=== PATIENT | male | born 1935 | race Caucasian/White ===

== ENCOUNTER 2019-11-15 06:20 | Inpatient (IN) ==
[~2019-11-15 06:20] MED LIST: Vancomycin 1,000 MG, Sodium Chloride IRRigation 1,000 ML IR ONE
[2019-11-15] MEDS ORDERED: CeFAZolin Syr 2,000MG/20 ML 2,000 MG/20 ML SYRINGE IVPB ONE (06:53)
[2019-11-15] MEDS ORDERED: 0.9 % Sodium Chloride 1,000 ML IVC SCH ×2 (07:00→11:44)
[2019-11-15] MEDS ORDERED: Lidocaine -MPF 2% 2 ML VIAL ONE (07:09)
[2019-11-15] MEDS ORDERED: *HR* FentaNYL (PF) 100 MCG/2 ML VIAL ONE (07:09)
[2019-11-15] MEDS ORDERED: *HR* Propofol 200 MG/20 ML VIAL IVP ONE (07:09)
[2019-11-15] MEDS ORDERED: *HR* OxyCODONE Immed Rel 5 MG TABLET PO PRN ×3 (07:09→11:44)
[2019-11-15] MEDS ORDERED: *HR* Succinylcholine 200 MG/10 ML VIAL IVP ONE (07:09)
[2019-11-15] MEDS ORDERED: Ondansetron 4 MG/2 ML VIAL IVP ONE (07:09)
[2019-11-15] MEDS ORDERED: 0.9 % Sodium Chloride 500 ML IVC SCH (07:15)
[2019-11-15] MEDS ORDERED: EPHEDrine 50 MG/ML VIAL ONE (08:03)
[2019-11-15] MEDS ORDERED: *HR* PHENYLEPHRINE 1,000 MCG/10 ML SYRINGE IVP ONE (08:39)
[2019-11-15] MEDS: *HR* HYDROmorphone PF 0.5 MG/0.5 ML SYRINGE IVP PRN ×4 (09:44→10:06)
[2019-11-15] MEDS ORDERED: Artificial Tears SOLN 15 ML BOTTLE BOTH EYES PRN (11:44)
[2019-11-15] MEDS ORDERED: Dextrose Gel 15 GM/37.5 ML TUBE PO PRN ×2 (11:44)
[2019-11-15] MEDS ORDERED: D5% in Water 1,000 ML IVC PRN (11:44)
[2019-11-15] MEDS ORDERED: Acetaminophen 325 MG TABLET PO PRN ×2 (11:44)
[2019-11-15] MEDS ORDERED: *HR* Dextrose 50 % in Water (Vial) 50 ML VIAL IVP PRN (11:44)
[2019-11-15] MEDS ORDERED: Ondansetron 4 MG/2 ML VIAL IVP PRN (11:44)
[2019-11-15] MEDS ORDERED: *HR* HYDROcodone/Acet 5/325 mg TABLET PO PRN ×2 (11:44)
[2019-11-15] MEDS ORDERED: *HR* Labetalol 20 MG/4 ML SYRINGE IVP PRN (11:44)
[2019-11-15] MEDS ORDERED: Naloxone 0.4 MG/ML INJ IVP PRN (11:44)
[2019-11-15] MEDS: *HR* Metoprolol 5 MG/5 ML VIAL IVP SCH ×3 (15:00→23:51)
[2019-11-15] MEDS: Insulin LISPRO 300 UNITS/3 ML VIAL SQ SCH ×3 (15:00→21:57)
[2019-11-15] MEDS: Lactobacillus 1 EACH CAP.SPRINK PO SCH (21:55)
[2019-11-15] MEDS: Saline Nasal Spray 44 ML BOTTLE NS SCH (21:56)
[2019-11-15] MEDS: Latanoprost 2.5 ML BOTTLE BOTH EYES SCH (21:56)
[2019-11-15] MEDS: [UNRECOGNIZED DRUG - OTHER] TP SCH (21:57)
[2019-11-15] MEDS: (Methenamine Hippurate [Hiprex] 1 GM) PO SCH (21:57)
[2019-11-15] MEDS ORDERED: Insulin LISPRO 300 UNITS/3 ML VIAL SQ ONE (23:18)
[2019-11-15 23:28] LABS: Hematocrit 27.8 % (37.5-50.1); Hemoglobin 8.3 g/dL (12.9-16.9)
[2019-11-15 23:47] LABS: Calcium 8.5 mg/dL (8.6-10.3); Potassium 4.6 mEq/L (3.5-5.1)
[2019-11-16] MEDS ORDERED: Insulin DETEMIR 100 UNIT/ML X5UNITS SQ ONE (02:08)
[2019-11-16 03:59] LABS: Basophils % 0.1 %; Hematocrit 25.8 % (37.5-50.1); Hemoglobin 7.6 g/dL (12.9-16.9); Immature Granulocytes % 0.6 % (0-4); Lymphocytes # 0.5 K/mcL (0.6-4.6); Lymphocytes % 3.4 %; Mean Corpuscular HGB Conc 29.5 g/dL (31.6-35.5); Mean Corpuscular Hemoglobin 25.6 pg (28.0-33.3); Mean Corpuscular Volume 86.9 fL (83.0-100.0); Mean Platelet Volume 10.4 fL (9.4-12.4); Monocytes # 1.1 K/mcL (0.0-1.3); Monocytes % 7.6 %; Platelet Count 372 K/mcL (140-400); Red Blood Count 2.97 M/mcL (4.19-5.50); Red Cell Distribution Width 14.8 % (11.5-14.5); Segmented Neutrophils % 88.3 %
[2019-11-16 04:00] LABS: Neutrophils # 12.3 K/mcL (1.6-8.9); White Blood Count 13.9 K/mcL (4.3-11.1)
[2019-11-16 04:19] LABS: Calcium 8.3 mg/dL (8.6-10.3); Potassium 4.7 mEq/L (3.5-5.1)
[2019-11-16] MEDS ORDERED: *HR* Heparin 5,000 UNIT/ML VIAL SQ SCH (06:00)
[2019-11-16] MEDS ORDERED: Insulin LISPRO 300 UNITS/3 ML VIAL SQ ONE (06:10)
[2019-11-16] MEDS: *HR* Metoprolol 5 MG/5 ML VIAL IVP SCH (06:31)
[2019-11-16] MEDS: *HR* Heparin 5,000 UNIT/ML VIAL SQ SCH ×2 (06:32→18:18)
[2019-11-16] MEDS: Ascorbic Acid 500 MG TABLET PO SCH (08:39)
[2019-11-16] MEDS: Lactobacillus 1 EACH CAP.SPRINK PO SCH ×2 (08:39→21:32)
[2019-11-16] MEDS: Cholecalciferol (D-3) 1,000 UNIT (25MCG) TABLET PO SCH (08:39)
[2019-11-16] MEDS: Furosemide 20 MG TABLET PO SCH (08:39)
[2019-11-16] MEDS: Multivit/Ca/Min/Fe/FA 1 TAB TABLET PO SCH (08:39)
[2019-11-16] MEDS: Aspirin Enteric Coated 81 MG Tablet PO SCH (08:39)
[2019-11-16] MEDS: Insulin LISPRO 300 UNITS/3 ML VIAL SQ SCH ×4 (08:40→21:34)
[2019-11-16] MEDS: Insulin DETEMIR 100 UNIT/ML X5UNITS SQ SCH ×2 (08:41→21:33)
[2019-11-16] MEDS: Saline Nasal Spray 44 ML BOTTLE NS SCH ×2 (08:41→21:34)
[2019-11-16] MEDS: [UNRECOGNIZED DRUG - OTHER] TP SCH (08:45)
[2019-11-16] MEDS: (Methenamine Hippurate [Hiprex] 1 GM) PO SCH (08:45)
[2019-11-16] MEDS ORDERED: *HR* Glimepiride 2 MG TABLET PO SCH (09:00)
[2019-11-16] MEDS ORDERED: *HR* OxyCODONE Immed Rel 5 MG TABLET PO PRN (14:32)
[2019-11-16] MEDS ORDERED: Gentamicin Oint 15 GM TUBE TP SCH (16:15)
[2019-11-16] MEDS: Latanoprost 2.5 ML BOTTLE BOTH EYES SCH (21:34)
[2019-11-17] MEDS: Gentamicin Oint 15 GM TUBE TP SCH ×2 (01:03→20:38)
[2019-11-17 04:18] LABS: Basophils % 0.1 %; Eosinophils % 0.2 %; Hematocrit 22.4 % (37.5-50.1); Hemoglobin 6.8 g/dL (12.9-16.9); Immature Granulocytes % 0.7 % (0-4); Lymphocytes # 0.9 K/mcL (0.6-4.6); Lymphocytes % 6.9 %; Mean Corpuscular HGB Conc 30.4 g/dL (31.6-35.5); Mean Corpuscular Hemoglobin 25.7 pg (28.0-33.3); Mean Corpuscular Volume 84.5 fL (83.0-100.0); Mean Platelet Volume 10.8 fL (9.4-12.4); Monocytes # 1.2 K/mcL (0.0-1.3); Monocytes % 9.1 %; Neutrophils # 10.7 K/mcL (1.6-8.9); Nucleated Red Blood Cells 0.2 /100 WBC (0); Platelet Count 353 K/mcL (140-400); Red Blood Count 2.65 M/mcL (4.19-5.50); White Blood Count 12.9 K/mcL (4.3-11.1)
[2019-11-17 04:36] LABS: Calcium 8.7 mg/dL (8.6-10.3); Potassium 4.3 mEq/L (3.5-5.1)
[2019-11-17] MEDS: *HR* Heparin 5,000 UNIT/ML VIAL SQ SCH ×2 (05:18→17:25)
[2019-11-17] MEDS: Cholecalciferol (D-3) 1,000 UNIT (25MCG) TABLET PO SCH (07:55)
[2019-11-17] MEDS: Aspirin Enteric Coated 81 MG Tablet PO SCH (07:55)
[2019-11-17] MEDS: Ascorbic Acid 500 MG TABLET PO SCH (07:56)
[2019-11-17] MEDS: Lactobacillus 1 EACH CAP.SPRINK PO SCH ×2 (07:56→20:37)
[2019-11-17] MEDS: Multivit/Ca/Min/Fe/FA 1 TAB TABLET PO SCH (07:56)
[2019-11-17] MEDS: Furosemide 20 MG TABLET PO SCH (07:57)
[2019-11-17] MEDS: Insulin DETEMIR 100 UNIT/ML X5UNITS SQ SCH ×2 (07:57→20:38)
[2019-11-17] MEDS: Saline Nasal Spray 44 ML BOTTLE NS SCH ×2 (07:58→20:39)
[2019-11-17] MEDS: Insulin LISPRO 300 UNITS/3 ML VIAL SQ SCH ×4 (08:02→20:36)
[2019-11-17 08:12] LABS: Hematocrit 23.1 % (37.5-50.1); Hemoglobin 7.1 g/dL (12.9-16.9)
[2019-11-17] MEDS ORDERED: 0.9 % Sodium Chloride 250 ML ONE ×2 (09:09→12:47)
[2019-11-17 17:56] LABS: Hemoglobin 9.4 g/dL (12.9-16.9)
[2019-11-17] MEDS: Latanoprost 2.5 ML BOTTLE BOTH EYES SCH (20:38)
[2019-11-18 01:16] LABS: Hematocrit 29.7 % (37.5-50.1); Hemoglobin 9.5 g/dL (12.9-16.9)
[2019-11-18] MEDS: *HR* Heparin 5,000 UNIT/ML VIAL SQ SCH (05:08)
[2019-11-18 05:40] LABS: Hematocrit 29.5 % (37.5-50.1); Hemoglobin 9.1 g/dL (12.9-16.9)
[2019-11-18 08:45] LABS: Calcium 8.2 mg/dL (8.6-10.3); Magnesium 1.9 mg/dL (1.6-2.6); Phosphorous 2.7 mg/dL (2.7-4.5); Potassium 3.8 mEq/L (3.5-5.1)
[2019-11-18 09:05] LABS: Basophils % 0.4 %; Eosinophils # 0.3 K/mcL (0.0-0.6); Eosinophils % 3.2 %; Hematocrit 31.1 % (37.5-50.1); Hemoglobin 9.9 g/dL (12.9-16.9); Immature Granulocytes % 0.8 % (0-4); Lymphocytes # 1.1 K/mcL (0.6-4.6); Lymphocytes % 10.9 %; Mean Corpuscular HGB Conc 31.8 g/dL (31.6-35.5); Mean Corpuscular Hemoglobin 27.4 pg (28.0-33.3); Mean Corpuscular Volume 86.1 fL (83.0-100.0); Mean Platelet Volume 10.7 fL (9.4-12.4); Neutrophils # 7.3 K/mcL (1.6-8.9); Platelet Count 338 K/mcL (140-400); Red Blood Count 3.61 M/mcL (4.19-5.50); Red Cell Distribution Width 14.6 % (11.5-14.5); Segmented Neutrophils % 74.7 %; White Blood Count 9.7 K/mcL (4.3-11.1)
[2019-11-18] MEDS: Insulin LISPRO 300 UNITS/3 ML VIAL SQ SCH ×4 (10:01→20:06)
[2019-11-18] MEDS: Cholecalciferol (D-3) 1,000 UNIT (25MCG) TABLET PO SCH (10:02)
[2019-11-18] MEDS: Multivit/Ca/Min/Fe/FA 1 TAB TABLET PO SCH (10:02)
[2019-11-18] MEDS: Aspirin Enteric Coated 81 MG Tablet PO SCH (10:02)
[2019-11-18] MEDS: Furosemide 20 MG TABLET PO SCH (10:02)
[2019-11-18] MEDS: Insulin DETEMIR 100 UNIT/ML X5UNITS SQ SCH ×2 (10:02→20:07)
[2019-11-18] MEDS: Lactobacillus 1 EACH CAP.SPRINK PO SCH ×2 (10:02→20:11)
[2019-11-18] MEDS: Ascorbic Acid 500 MG TABLET PO SCH (10:02)
[2019-11-18] MEDS: Saline Nasal Spray 44 ML BOTTLE NS SCH ×2 (10:40→20:09)
[2019-11-18 15:23] LABS: Adenovirus F 40/41 PCR Not detected (Not detect); Astrovirus PCR Not detected (Not detect); C.difficile Toxin A/B Gene PCR Not detected (Not detect); Campylobacter by PCR Not detected (Not detect); Cryptosporidium by PCR Not detected (Not detect); Cyclospora cayetanensis PCR Not detected (Not detect); E. coli O157 by PCR Not detected (Not detect); Entamoeba histolytica PCR Not detected (Not detect); Enteroaggregative E.coli(EAEC) Not detected (Not detect); Enteropathogenic E.coli(EPEC) Not detected (Not detect); Enterotoxigenic E.coli (ETEC) Not detected (Not detect); Giardia lamblia PCR Not detected (Not detect); Norovirus GI/GII PCR Not detected (Not detect); Plesiomonas shigelloides PCR Not detected (Not detect); Rotavirus A PCR Not detected (Not detect); Salmonella PCR Not detected (Not detect); Sapovirus PCR Not detected (Not detect); Shig/EnteroinvasiveE coli EIEC Not detected (Not detect); Shigalike tox-prod E coli STEC Not detected (Not detect); Vibrio PCR Not detected (Not detect); Vibrio cholerae PCR Not detected (Not detect); Yersinia enterocolitica PCR Not detected (Not detect)
[2019-11-18] MEDS ORDERED: Perflutren Lipid Microsphere 1.3 ML in 0.9 % Sodium Chloride 8.7 ML IVP PRN (17:38)
[2019-11-18] MEDS: Latanoprost 2.5 ML BOTTLE BOTH EYES SCH (20:10)
[2019-11-18] MEDS: Gentamicin Oint 15 GM TUBE TP SCH (20:10)
[2019-11-18] MEDS: Apixaban 2.5 MG TABLET PO SCH (20:11)
[2019-11-18] MEDS: Metoprolol 100 MG TABLET PO SCH (20:11)
[2019-11-19 03:37] LABS: Basophils % 0.4 %; Eosinophils # 0.2 K/mcL (0.0-0.6); Eosinophils % 1.9 %; Hematocrit 33.6 % (37.5-50.1); Hemoglobin 10.4 g/dL (12.9-16.9); Immature Granulocytes % 1.2 % (0-4); Lymphocytes # 0.8 K/mcL (0.6-4.6); Mean Corpuscular Hemoglobin 26.4 pg (28.0-33.3); Mean Corpuscular Volume 85.3 fL (83.0-100.0); Mean Platelet Volume 10.7 fL (9.4-12.4); Monocytes # 1.1 K/mcL (0.0-1.3); Monocytes % 9.3 %; Neutrophils # 9.1 K/mcL (1.6-8.9); Platelet Count 370 K/mcL (140-400); Red Blood Count 3.94 M/mcL (4.19-5.50); Red Cell Distribution Width 14.7 % (11.5-14.5); Segmented Neutrophils % 80.2 %; White Blood Count 11.3 K/mcL (4.3-11.1)
[2019-11-19 03:51] LABS: Calcium 8.9 mg/dL (8.6-10.3); Phosphorous 3.1 mg/dL (2.7-4.5)
[2019-11-19] MEDS ORDERED: Regadenoson 0.4 MG/5 ML SYRINGE IVP ONE (06:13)
[2019-11-19] MEDS: Insulin LISPRO 300 UNITS/3 ML VIAL SQ SCH ×4 (07:30→20:17)
[2019-11-19] MEDS: Apixaban 2.5 MG TABLET PO SCH ×2 (11:10→20:01)
[2019-11-19] MEDS: Multivit/Ca/Min/Fe/FA 1 TAB TABLET PO SCH (11:10)
[2019-11-19] MEDS: Metoprolol 100 MG TABLET PO SCH ×2 (11:10→20:01)
[2019-11-19] MEDS: Lactobacillus 1 EACH CAP.SPRINK PO SCH ×2 (11:10→20:01)
[2019-11-19] MEDS: Ascorbic Acid 500 MG TABLET PO SCH (11:10)
[2019-11-19] MEDS: Furosemide 20 MG TABLET PO SCH (11:10)
[2019-11-19] MEDS: Aspirin Enteric Coated 81 MG Tablet PO SCH (11:10)
[2019-11-19] MEDS: Cholecalciferol (D-3) 1,000 UNIT (25MCG) TABLET PO SCH (11:10)
[2019-11-19] MEDS: Saline Nasal Spray 44 ML BOTTLE NS SCH ×2 (12:16→20:00)
[2019-11-19] MEDS: Insulin DETEMIR 100 UNIT/ML X5UNITS SQ SCH ×2 (12:16→20:16)
[2019-11-19] MEDS: Latanoprost 2.5 ML BOTTLE BOTH EYES SCH (20:00)
[2019-11-19] MEDS: Gentamicin Oint 15 GM TUBE TP SCH (20:16)
[2019-11-20] MEDS: Insulin LISPRO 300 UNITS/3 ML VIAL SQ SCH (08:01)
[2019-11-20 08:05] VITALS: BP 105/60
[2019-11-20 08:50] LABS: Calcium 8.8 mg/dL (8.6-10.3); Magnesium 2.2 mg/dL (1.6-2.6); Phosphorous 3.1 mg/dL (2.7-4.5); Potassium 3.4 mEq/L (3.5-5.1)
[2019-11-20 09:11] LABS: Basophils % 0.3 %; Eosinophils # 0.1 K/mcL (0.0-0.6); Eosinophils % 1.1 %; Immature Granulocytes % 0.9 % (0-4); Lymphocytes # 0.6 K/mcL (0.6-4.6); Lymphocytes % 5.6 %; Mean Corpuscular HGB Conc 30.3 g/dL (31.6-35.5); Mean Corpuscular Hemoglobin 26.1 pg (28.0-33.3); Mean Corpuscular Volume 86.2 fL (83.0-100.0); Mean Platelet Volume 10.8 fL (9.4-12.4); Monocytes # 1.4 K/mcL (0.0-1.3); Monocytes % 12.2 %; Neutrophils # 9.1 K/mcL (1.6-8.9); Platelet Count 367 K/mcL (140-400); Red Blood Count 3.83 M/mcL (4.19-5.50); Red Cell Distribution Width 15.1 % (11.5-14.5); Segmented Neutrophils % 79.9 %; White Blood Count 11.3 K/mcL (4.3-11.1)
[2019-11-20] MEDS: Metoprolol 100 MG TABLET PO SCH (10:22)
[2019-11-20] MEDS: Ascorbic Acid 500 MG TABLET PO SCH (10:22)
[2019-11-20] MEDS: Apixaban 2.5 MG TABLET PO SCH (10:22)
[2019-11-20] MEDS: Lactobacillus 1 EACH CAP.SPRINK PO SCH (10:22)
[2019-11-20] MEDS: Cholecalciferol (D-3) 1,000 UNIT (25MCG) TABLET PO SCH (10:23)
[2019-11-20] MEDS: Furosemide 20 MG TABLET PO SCH (10:23)
[2019-11-20] MEDS: Multivit/Ca/Min/Fe/FA 1 TAB TABLET PO SCH (10:23)
[2019-11-20] MEDS: Saline Nasal Spray 44 ML BOTTLE NS SCH (10:24)
[2019-11-20] MEDS: Insulin DETEMIR 100 UNIT/ML X5UNITS SQ SCH (10:26)
== END 2019-11-20 12:30 | DRG 240 ==
LOC: SAMDAY 06:20 → 3ANU 11:29
PROVIDERS: ADMIT Surgery; ATTEND Surgery